=== PATIENT | male | born 1985 | race Caucasian/White ===

== ENCOUNTER 2017-11-18 10:23 | Outpatient (CLI) | payer OTHER ==
--- NOTE | 2017-11-18 13:56 | CT ---
CT ABDOMEN AND PELVIS NONCONTRAST: History: Left flank pain. FINDINGS: Each renal collecting system, ureter, and urinary bladder are decompressed without stone evident. Lack of IV contrast limits evaluation for other abnormalities. Oral contrast was administered. No gay dence of bowel obstruction. Scattered diverticula arise from the sigmoid colon without adjacent inflammation. IMPRESSION: 1. No CT evidence of urinary tract obstruction or calcification. 2. Diverticulosis. No evidence of diverticulitis. POS: [facility]
== END 2017-11-18 10:24 | disposition home or self-care (01) ==
LOC: CT 10:23
PROVIDERS: ATTEND Family Medicine
DX: R10.32 Left lower quadrant pain (principal); K57.90 Diverticulosis of intestine, part unspecified, without perforation or abscess without bleeding
CPT/HCPCS: 74176

== ENCOUNTER 2018-05-12 15:57 | Emergency (ER) | payer OTHER | END 2018-05-12 16:55 | disposition home or self-care (01) | LOC: SCSER 15:57 | DX: S39.012A Strain of muscle, fascia and tendon of lower back, initial encounter (principal); F17.220 Nicotine dependence, chewing tobacco, uncomplicated; X50.0XXA Overexertion from strenuous movement or load, initial encounter | CPT/HCPCS: 99283 ==

== ENCOUNTER 2019-01-19 12:41 | Outpatient (CLI) | payer OTHER ==
--- NOTE | 2019-01-19 13:41 | RAD ---
EXAM: 4 views of the right knee HISTORY: Knee pain after fall 2 weeks ago COMPARISON: None FINDINGS: No knee effusion is seen. There is no evidence of acute fracture or dislocation. No signifi cant degenerative changes are seen. No soft tissue swelling is present. IMPRESSION: No evidence of acute osseous abnormality.
== END 2019-01-19 12:42 | disposition home or self-care (01) ==
LOC: SCSRAD 12:41
PROVIDERS: ATTEND Physician Assistant
DX: S89.91XA Unspecified injury of right lower leg, initial encounter (principal); M25.461 Effusion, right knee

== ENCOUNTER 2019-01-31 13:32 | Outpatient (CLI) | payer OTHER ==
--- NOTE | 2019-01-31 16:42 | MRI ---
EXAM: RIGHT KNEE MRI WITHOUT IV CONTRAST: 01/31/19 HISTORY: Injury following a fall, M23.91, pain and swelling. FINDINGS: There is slightly more prominent than physiologic joint fluid. There is some chondral irregularity i nvolving the medial patellar facet medially, evidence for chondromalacia patella. There is some minim al subtle fat stranding in Hoffa's fat, nonspecific possibly related to contusion. Minimal focal thin gee of lateral patellar facet cartilage caudally. There is some patchy increased T2 hyperintensity w ithin the lateral gastrocnemius muscle evidence for strain. Medial and lateral menisci, anterior and posterior cruciate ligaments, collateral ligament complexes, and quadriceps and patellar tendons appe ar intact. IMPRESSION: Medial and lateral focal areas of cartilage thinning of the patella. Nonspecific fat stranding in Hof fa's fat. Heterogeneous T2 hyperintensity within the lateral gastrocnemius muscle evidence for strain or contusion. No evidence for other significant acute internal derangement. POS: [facility]
== END 2019-01-31 13:33 | disposition home or self-care (01) ==
LOC: SCSMRI 13:32
PROVIDERS: ATTEND Orthopaedic Surgery
DX: M23.91 Unspecified internal derangement of right knee (principal)